=== PATIENT | male | born 1965 | race Caucasian/White ===

== ENCOUNTER 2018-04-12 14:38 | Emergency (ER) | payer OTHER, SELFPAY ==
[2018-04-12 14:40] VITALS: BP 137/88; PULSE 63; RESP 12; TEMP 37.1; O2SAT 100; BMI 24.4
--- NOTE | 2018-04-12 14:46 | DI.RAD.S_ITS ---
PROCEDURE: XR CHEST 1V INDICATIONS: chest pain TECHNIQUE: One view of the chest was acquired. COMPARISON: None. FINDINGS: Surgical changes and devices: None. Lungs and pleura: Lungs are clear. No pleural effusions or pneumothorax. Mediastinum: Mediastinal contours appear normal. Heart size is normal. Bones and chest wall: No suspicious bony lesions. Overlying soft tissues appear unremarkable. IMPRESSION: No acute cardiopulmonary disease. Dictated by: Darek Mennedez M.D. on 04/12/2018 at 15:18 Approved by: Darek Menendez M.D. on 04/12/2018 at 15:19
[2018-04-12 14:54] LABS: Add Manual Diff / Slide Review NO; Basophils Absolute Auto 0 /uL (0-100); Basophils Percent Auto 0.4 % (0-2); Eosinophils Absolute Auto 200 /uL (0-450); Eosinophils Percent Auto 1.7 % (2-4); Hematocrit 50.7 % (41-53); Hemoglobin 17.3 g/dL (13.5-17.5); Lymphocytes Absolute Auto 1900 /uL (1100-4500); Lymphocytes Percent Auto 21.6 % (25-40); Mean Corpuscular HGB Conc 34.2 % (30-36); Mean Corpuscular Hemoglobin 30.3 PG (26-34); Mean Corpuscular Volume 88.8 fL (80-100); Monocytes Absolute Auto 900 /uL (0-900); Monocytes Percent Auto 10.4 % (3-14); Neutrophils Absolute Auto 5900 /uL (1500-7000); Neutrophils Percent Auto 65.9 % (50-75); Platelet Count 200 X10^3/uL (150-400); Red Blood Cell Count 5.71 X10^6/uL (4.5-5.9); Red Cell Distribution Width 12.8 % (11.6-14.8); White Blood Cell Count 8.9 X10^3/uL (4.5-11.0)
--- NOTE | 2018-04-12 14:55 | ED_ITS ---
HPI - Chest Pain General Chief Complaint: Chest Pain Stated Complaint: CHEST PAIN,BAD STOMACH Time Seen by Provider: 04/12/18 14:47 Source: patient Mode of arrival: ambulatory Limitations: no limitations History of Present Illness HPI narrative: patient is a 52-year-old male presenting with left-sided chest pain. He was being treated for gastric ulcer with sucralfate and Protonix. He is on these medications for 3 weeks however he quit sulfate 1 week ago a few days ago he started having some chest discomfort and increased gas. With these are similar to his gastric ulcer symptoms however is a little different. No radiation no shortness of has no nausea vomiting.Patient is yesterday his symptoms are actually much worse which is when he started taking the sucralfate again he took 1 dose yesterday and 1 dose today. Called the nursing hotline who recommended he come to the emergency department for further evaluation. He overall feels better today than he did yesterday. MD complaint: chest pain Related Data Home Medications Medication Instructions Recorded Confirmed sucralfate 1 gram tablet 1 gram PO QID tab 04/05/18 04/12/18 atenolol 50 mg PO DAILY 04/12/18 04/12/18 diltiazem HCl 120 mg PO DAILY 04/12/18 04/12/18 diphenhydramine HCl 12.5 mg PO BEDTIME PRN 04/12/18 hydroxyzine pamoate 25 mg PO DAILY 04/12/18 04/12/18 meloxicam 15 mg PO DAILY 04/12/18 04/12/18 omeprazole 40 mg PO DAILY 04/12/18 04/12/18 Allergies Allergy/AdvReac Type Severity Reaction Status Date / Time latex [LATEX] Allergy Unknown Verified 04/12/18 14:44 Review of Systems Review of Systems ROS Unobtainable: All systems reviewed & are unremarkable except as noted in HPI and below Constitutional Denies chills, Denies fever(s), Denies lethargy and Denies weakness Eyes Denies change in vision, Denies eye discharge, Denies irritation and Denies loss of vision ENT Ears, Nose, Mouth, and Throat: Denies change in voice, Denies neck pain and Denies sore throat Cardiovascular Reports chest pain, Denies dyspnea and Denies dyspnea on exertion Respiratory Denies cough, Denies dyspnea, Denies dyspnea on exertion and Denies wheezing Gastrointestinal Gastrointestinal: Reports as per HPI Genitourinary Denies hematuria, Denies flank pain, Denies urinary incontinence and Denies urinary urgency Musculoskeletal Denies neck pain Integumentary/Breasts Denies pruritus, Denies erythema, Denies rash and Denies wounds Neurologic Denies loss of vision and Denies weakness Allergic/Immunologic Denies wheezing [facility] Medical History Bleeding gastric ulcer (Acute) Gastroesophageal reflux disease (Acute) History of nephrolithiasis (Acute) Osteoarthritis (Acute) HTN (hypertension) (Chronic) Raynaud's disease (Chronic) Arthritis (Resolved) Surgical History History of appendectomy (Acute) History of cardiac radiofrequency ablation (Acute) History of cholecystectomy (Acute) History of colonoscopy (Acute) History of tonsillectomy (Acute) Family History Mother Hypertension Brother Hypertension Grandfather Diabetes mellitus Grandmother Stroke Social History marital status: household members: spouse occupational status: employed Smoking Status: Never smoker alcohol intake: current substance use type: does not use Family History Mother Hypertension Brother Hypertension Grandfather Diabetes mellitus Grandmother Stroke Social History marital status: household members: spouse occupational status: employed Smoking Status: Never smoker alcohol intake: current substance use type: does not use Exam Initial Vital Signs Initial Vital Signs: Vital Signs Temperature 98.8 F 04/12/18 14:40 Pulse Rate 63 04/12/18 14:40 Respiratory Rate 12 04/12/18 14:40 Blood Pressure 137/88 04/12/18 14:40 Pulse Oximetry 100 04/12/18 14:40 GENERAL: well-appearing male no acute distr HEENT: Head atraumatic,EOMI, pupils reactive, face symmetric neck is supple CARDIOVASCULAR: Regular rate and rhythm without murmurs, rubs or gallops. RESPIRATORY: Breath sounds equal bilaterally, no wheezes rales or rhonchi. ABDOMEN: Soft, nontender. Normoactive bowel sounds all 4 quadrants. No guarding or rebound. No right upper quadrant pain EXTREMITIES: Normal range of motion, no clubbing or edema. Neurovascularly intact NEUROLOGICAL: Alert and oriented x4.Normal gait and speech. Cranial nerves II through XII grossly intact. SKIN: Warm, dry, no laceration, no petechiae, no rashes or lesions. Scores HEART Score Heart Score history: Slightly Suspicious Heart Score EKG: Normal Heart Score Age: 45-64 years old Heart Score risk factors: 1-2 risk factors Heart Score troponin: < or = to normal limit Heart Score Total: 2 Course Orders Ordered: ED Orders 04/12/18 14:45 Complete Blood Count AUTO DIFF Stat Comprehensive Metabolic Panel Stat Lipase Stat Partial Thromboplastin Time Stat Prothrombin Time INR Stat Troponin & CK Cardiac Panel Stat 04/12/18 14:46 XR chest 1V Stat EKG-12 Lead Stat Discontinued Medications Pantoprazole Sodium (Protonix) 40 mg IV NOW ONE Stop: 04/12/18 15:07 Last Admin: 04/12/18 15:55 Dose: 40 mg Vital Signs - 8 hr 04/12/18 14:40 04/12/18 15:00 04/12/18 16:00 Temperature 98.8 F Pulse Rate 63 58 L 59 L Respiratory Rate 12 15 16 Blood Pressure 137/88 Blood Pressure [Right Arm] 142/91 H 111/79 Pulse Oximetry 100 100 100 MDM - Chest Pain Lab Data Attestation: I reviewed the patient's lab results. Result diagrams: 04/12/18 14:45 04/12/18 14:45 Lab Results 04/12/18 04/12/18 04/12/18 Range/Units 14:45 14:45 14:45 WBC 8.9 (4.5-11.0) X10^3/uL RBC 5.71 (4.5-5.9) X10^6/uL Hgb 17.3 (13.5-17.5) g/dL Hct 50.7 (41-53) % MCV 88.8 (80-100) fL MCH 30.3 (26-34) PG MCHC 34.2 (30-36) % RDW 12.8 (11.6-14.8) % Plt Count 200 (150-400) X10^3/uL Neut % (Auto) 65.9 (50-75) % Lymph % (Auto) 21.6 L (25-40) % Collin % (Auto) 10.4 (3-14) % Eos % (Auto) 1.7 L (2-4) % Baso % (Auto) 0.4 (0-2) % Neut # (Auto) 5900 (0793-0386) /uL Lymph # (Auto) 1900 (3106-2234) /uL Collin # (Auto) 900 (0-900) /uL Eos # (Auto) 200 (0-450) /uL Baso # (Auto) 0 (0-100) /uL PT 10.4 (10.1-12.7) SECONDS INR 0.9 (0.9-1.3) APTT 30 (26.4-36.2) SECONDS Sodium 140 (137-145) mmol/L Potassium 4.3 (3.4-5.1) mmol/L Chloride 104 (98-107) mmol/L Carbon Dioxide 24 (22-32) mmol/L BUN 16 (9-20) mg/dL Creatinine 0.90 (0.66-1.25) mg/dL Estimated GFR > 60.0 (>60) mL/min BUN/Creatinine Ratio 17.8 (6-22) Glucose 104 H (70-100) mg/dL Calcium 10.1 (8.4-10.2) mg/dL Total Bilirubin 2.4 H (0.2-1.3) mg/dL AST 32 (17-59) IU/L ALT 49 (21-72) IU/L Alkaline Phosphatase 64 (38-126) U/L Total Creatine Kinase 51 L (55-170) U/L CK-MB (CK-2) TNP CK-MB (CK-2) Rel Index TNP Troponin I < 0.012 (0.01-0.034) ng/mL Total Protein 8.2 (6.3-8.2) g/dL Albumin 4.9 (3.5-5.0) g/dL Globulin 3.3 (1.7-4.1) g/dL Albumin/Globulin Ratio 1.5 (1.0-2.8) Lipase 227 (23-300) U/L ECG Data Attestation: I personally reviewed and interpreted this ECG as follows: Prior ECG tracings: not available for review Interpretation: normal sinus rhythm rate [address] changes no T-wave inversions right bundle-branch block MDM Narrative Medical decision making narrative: patient's signs and symptoms are similar to previously when he had his presumed gastric ulcer. They got better yesterday and today after having sucralfate. I also did discuss with him however he should have cardiac stress test. However at this time I think this can be done as an outpatient. I also strongly recommended re-consult thing surgery and need for endoscopy. Both and patient understood. Discharge Plan Departure Patient Disposition: Home Clinical Impression: Atypical chest pain Discharge Date/Time: 04/12/18 16:12 Interventions: ED Discharge Assessment Last Done: 04/12/18 16:12 Instructions: DI for Atypical Chest Pain Activity Restrictions/Additional Instructions: *You have been diagnosed with Atypical chest pain *What to do: at this time and he recommend outpatient cardiac stress testing. your primary care provider can help set up these testings and referrals.Also if your continuing to have worsening symptoms of a gastric ulcer recommend following up with surgery for probable and possible endoscopy. *Continue to take medications as directed Resume sucralfate as previously prescribed *Follow up with your primary care provider in 2-3 days, Call [facility] for follow-up appointment *Return to ER if you should have increasing chest pain shortness of breath heart palpitations or any new, worsening or concerning symptoms Prescriptions: No Action sucralfate 1 gram tablet 1 gram PO QID RF: 0 meloxicam 15 mg tablet 15 mg PO DAILY RF: 0 omeprazole 40 mg capsule,delayed release(DR/EC) 40 mg PO DAILY RF: 0 diltiazem HCl 120 mg capsule,extended release 24 hr 120 mg PO DAILY RF: 0 atenolol 50 mg tablet 50 mg PO DAILY RF: 0 hydroxyzine pamoate 25 mg capsule 25 mg PO DAILY RF: 0 diphenhydramine HCl 25 mg Tablet 12.5 mg PO BEDTIME PRN (Reason: Sleep) RF: 0 Referrals: Melody Benton PA-C [Primary Care Provider] -
[2018-04-12 15:00] VITALS: BP 142/91; PULSE 58; RESP 15; O2SAT 100
[2018-04-12 15:02] LABS: INR 0.9 (0.9-1.3); Prothrombin Time 10.4 SECONDS (10.1-12.7)
[2018-04-12 15:04] LABS: PTT Partial Thromboplastin Tim 30 SECONDS (26.4-36.2)
[2018-04-12 15:06] LABS: Alanine Aminotransferase 49 IU/L (21-72); Albumin 4.9 g/dL (3.5-5.0); Albumin Globulin Ratio 1.5 (1.0-2.8); Alkaline Phosphatase 64 U/L (38-126); Aspartate Aminotransferase 32 IU/L (17-59); BUN Creatinine Ratio 17.8 (6-22); Bilirubin Total 2.4 mg/dL (0.2-1.3); Blood Urea Nitrogen 16 mg/dL (9-20); Calcium 10.1 mg/dL (8.4-10.2); Carbon Dioxide 24 mmol/L (22-32); Chloride 104 mmol/L (98-107); Creatine Kinase 51 U/L (55-170); Estimated Glomerular Filt Rate > 60.0 mL/min (>60); Globulin 3.3 g/dL (1.7-4.1); Glucose 104 mg/dL (70-100); HEMOLYSIS < 15 (0-50); Lipase 227 U/L (23-300); Potassium 4.3 mmol/L (3.4-5.1); Sodium 140 mmol/L (137-145); Total Protein 8.2 g/dL (6.3-8.2)
[2018-04-12 15:17] LABS: Troponin I < 0.012 ng/mL (0.01-0.034)
[2018-04-12] MEDS: PANTOPRAZOLE 40 MG VIAL IV (15:55)
[2018-04-12 16:00] VITALS: BP 111/79; PULSE 59; RESP 16; O2SAT 100
== END 2018-04-12 16:12 | disposition home or self-care (01) ==
PROVIDERS: Emergency Provider Emergency Medicine; Family Provider Family Medicine; PCP Physician Assistant
DX: R07.89 Other chest pain (principal)
CPT/HCPCS: 36591; 71045; 80053; 82550; 83690; 84484; 85025; 85610; 85730; 93005; 93010; 96374; 99283; 99285; C9113

== ENCOUNTER 2018-04-26 11:41 | Day surgery (SDC) | payer OTHER, SELFPAY ==
--- NOTE | 2018-04-26 | PATH_ITS ---
[facility] Accession Number: [id number] . 01 Material submitted: . ANTRAL BIOPSY . 02 Diagnosis: Stomach, Antrum, Biopsy: Antral mucosa with no diagnostic abnormality. Negative for Helicobacter by immunohistochemistry. Negative for intestinal metaplasia. Negative for dysplasia and malignancy. MRV/04/30/2018 . 02 Electronically signed: . Stephanie Patterson MD, Pathologist NPI- [id number] . 01 Gross description: . Received one formalin-filled container labeled with the patient's name and labeled antral. The specimen consists of three 0.1 to 0.4 cm portions of tissue. Entirely submitted in one cassette. [place] [id number] /[facility] . 02 Microscopic: . An immunohistochemical stain was performed to evaluate for Helicobacter organisms and is negative. The control stain showed appropriate reactivity. . * This test was developed and its performance characteristics determined by [employer]. It has not been cleared or approved by the U.S. Food and Drug Administration. The FDA has determined that such clearance or approval is not necessary. This test is used for clinical purposes. It should not be regarded as investigational or for research. . 02 Pathologist provided ICD-10: R10.9 . 02 CPT . 241995, H03361 Performed at: 01 [facility] [address], [place], [place] [id number] MD Deion Thomas MD Phone: [phone] Performed at: 02 [facility] [address] [place], [place] [id number] MD Stephanie Patterson MD Phone: [phone]
[2018-04-26 12:06] VITALS: BP 116/77; PULSE 61; RESP 18; TEMP 36.4; O2SAT 100; BMI 25.7
[2018-04-26] MEDS: SODIUM CHLORIDE 0.9% 1,000 ML 200 ML IV (12:24)
--- NOTE | 2018-04-26 12:27 | PM.PREOP ---
Pre-operative Note Interval Note History & Physical reviewed/Exam performed by Physician: Yes Changes to H&P: No H&P completed within 30 days and has changed as indicated here:: Patient seen and examined in preoperative area. His history physical examination from April 05, 2018 has not changed. We will proceed with EGD today as planned. Risks, benefits, alternatives were again reviewed including potential risk for perforation. Consent is on the chart. Proceed as above. ASA Class (for procedural sedation): II
[2018-04-26] MEDS: LIDOCAINE 4% SOLN 50 ML 20 ML TOP (12:28)
[2018-04-26] MEDS: TETRACAINE/BENZOCAINE/BUTAMBEN (CETACAINE) BOTTLE 1 SPRAY TOP (12:28)
[2018-04-26] MEDS: MIDAZOLAM 5 MG/5 ML VIAL IV (12:35)
[2018-04-26] MEDS: fentaNYL 250 MCG/5 ML INJ IV (12:36)
--- NOTE | 2018-04-26 12:44 | P.OP.ENDO_ITS ---
Operative Date/Time/Diagnoses Date of procedure: 04/26/18 Time of procedure: 12:42 Pre-op diagnosis: Gastroesophageal reflux disease and epigastric pain Post-op diagnosis: other (Mild antral gastritis but otherwise normal upper gastrointestinal tract) Procedure & Clinicians Study performed: 1. Sedation per surgeon 2. Esophagogastroduodenoscopy with cold forceps biopsies Same procedure as scheduled: Yes Indications: 52-year-old male who presented with intermittent epigastric abdominal pain. He also had significant reflux symptoms. Despite proton pump inhibitor therapy and sucralfate he continued to have symptoms. He was therefore recommended undergo EGD Surgeon: Brown Zamudio Procedure Notes SCOAP/Timeout: Yes Procedure in detail: After obtaining informed consent, the patient was brought to the GI suite and placed in the left lateral decubitus position on the examination table. After placement of appropriate monitors, the patient was given incremental doses of Versed and Fentanyl until an appropriate level of sedation was achieved. A time out was held per SCOAP protocol. A bite block was gently placed between the patient's teeth. The endoscope was lubricated and then passed into the patient's posterior oropharynx. The esophagus was cannulated under direct vision and the scope was passed to the second portion of the duodenum without difficulty. The scope was then withdrawn with careful examination of all areas of the upper GI tract and mucosa. In the stomach, the instrument was retroflexed and the GE junction examined. The scope was straightened and the procedure continued with examin ation of the remainder of the upper GI tract. Findings are noted above. Air was aspirated from the stomach and the endoscope gently removed from the esophagus. The patient was allowed to awaken from sedation without difficulty and taken to the post-anesthesia care unit in good condition. Scope withdrawal time: Not applicable Sedation minutes: 17 Findings: gastritis (Minimal at the antrum only) and other findings (Otherwise normal upper gastrointestinal tract) Specimen(s): other (Antral biopsies) Complications: none Recommendations: Reflux diet, Continue medication(s) and Will call with biopsy results Plan for aftercare: 1. Discharge home Follow up: as needed Disposition: PACU
[2018-04-26 12:46] VITALS: BP 112/81; PULSE 62; RESP 11; TEMP 36; O2SAT 94
[2018-04-26 12:51] VITALS: BP 111/80; PULSE 63; RESP 13; O2SAT 96
[2018-04-26 12:56] VITALS: BP 115/81; PULSE 66; RESP 13; TEMP 36.3; O2SAT 97
[2018-04-26 13:02] VITALS: BP 112/74; PULSE 62; RESP 15; TEMP 36.5; O2SAT 96
== END 2018-04-26 13:11 | disposition home or self-care (01) ==
PROVIDERS: Family Provider Family Medicine; PCP Physician Assistant; Visit Provider Surgery
PROC: 0DJ08ZZ Inspection of Upper Intestinal Tract, Via Natural or Artificial Opening Endoscopic (ICD-10-PCS; CPT 43235; principal; 2018-04-26 13:00)
DX: R10.13 Epigastric pain (principal); K21.9 Gastro-esophageal reflux disease without esophagitis; K29.70 Gastritis, unspecified, without bleeding; I10 Essential (primary) hypertension; I73.00 Raynaud's syndrome without gangrene
CPT/HCPCS: 43239; J2250; J3010

== ENCOUNTER 2018-11-16 12:59 | Emergency (ER) | payer OTHER, SELFPAY ==
[2018-11-16 13:06] VITALS: BP 122/85; PULSE 62; RESP 16; TEMP 36.2; O2SAT 100; BMI 24.4
[2018-11-16 13:31] LABS: Bacteria Urine None Seen
[2018-11-16 13:37] LABS: Amorphous Sediment Urine 1+; Culture Indicated Urine Cult Not Indicated; Mucus Urine 1+ (Negative); RBC Urine 5-10/HPF (0-5/HPF); Squamous Epithelial Cell Urine 0-1 /HPF (0-5/HPF); WBC Urine 0-1/HPF (0-5/HPF)
[2018-11-16 13:43] LABS: Add Manual Diff / Slide Review NO; Basophils Absolute Auto 0 /uL (0-100); Basophils Percent Auto 0.4 % (0-2); Eosinophils Absolute Auto 100 /uL (0-450); Eosinophils Percent Auto 1.8 % (2-4); Hematocrit 49.5 % (41-53); Hemoglobin 16.9 g/dL (13.5-17.5); Lymphocytes Absolute Auto 1500 /uL (1100-4500); Lymphocytes Percent Auto 19.1 % (25-40); Mean Corpuscular HGB Conc 34.3 % (30-36); Mean Corpuscular Hemoglobin 30.8 PG (26-34); Monocytes Absolute Auto 900 /uL (0-900); Monocytes Percent Auto 11.1 % (3-14); Neutrophils Absolute Auto 5400 /uL (1500-7000); Neutrophils Percent Auto 67.6 % (50-75); Platelet Count 198 X10^3/uL (150-400); Red Blood Cell Count 5.49 X10^6/uL (4.5-5.9); Red Cell Distribution Width 12.4 % (11.6-14.8)
[2018-11-16] MEDS: KETOROLAC 60 MG/2 ML VIAL 15 MG IV (13:51)
[2018-11-16] MEDS: ONDANSETRON 4 MG/2 ML INJ IV (13:52)
[2018-11-16 13:54] LABS: Prothrombin Time 10.9 SECONDS (10.1-12.7)
[2018-11-16 13:56] LABS: PTT Partial Thromboplastin Tim 34 SECONDS (26.4-36.2)
[2018-11-16 13:57] LABS: Alanine Aminotransferase 45 IU/L (21-72); Albumin 4.6 g/dL (3.5-5.0); Albumin Globulin Ratio 1.4 (1.0-2.8); Alkaline Phosphatase 61 U/L (38-126); Aspartate Aminotransferase 44 IU/L (17-59); BUN Creatinine Ratio 15.6 (6-22); Bilirubin Total 1.2 mg/dL (0.2-1.3); Blood Urea Nitrogen 14 mg/dL (9-20); Calcium 9.5 mg/dL (8.4-10.2); Carbon Dioxide 27 mmol/L (22-32); Chloride 102 mmol/L (98-107); Estimated Glomerular Filt Rate > 60.0 mL/min (>60); Globulin 3.2 g/dL (1.7-4.1); Glucose 92 mg/dL (70-100); HEMOLYSIS 27 (0-50); Lipase 176 U/L (23-300); Potassium 4.4 mmol/L (3.4-5.1); Sodium 141 mmol/L (137-145); Total Protein 7.8 g/dL (6.3-8.2)
--- NOTE | 2018-11-16 13:57 | DI.CT.S_ITS ---
PROCEDURE: CT ABDOMEN PELVIS W CON INDICATIONS: r side abdomen pain for 2 wks, s/p appy and kidney stone TECHNIQUE: After the administration of intravenous contrast, 5 mm thick sections acquired from the diaphragm to the symphysis. 5 mm coronal and sagittal reformats were acquired. For radiation dose reduction, the following was used: automated exposure control, adjustment of mA and/or kV according to patient size. COMPARISON: None. FINDINGS: Image quality: Excellent. ABDOMEN: Lung bases: Lung bases are clear. Heart size is normal. Solid organs: Liver is normal in size and enhancement. Right lobe liver cyst. Gallbladder is surgically absent.. Biliary system is non dilated. Pancreas enhances normally. Spleen is normal in size and enhancement. No adrenal nodules. There is a 4 mm stone at the right ureterovesical junction resulting in mild dilatation of the right ureter. There is no right hydronephrosis. There is no delayed right nephrogram. No right renal stone. Left kidney and ureter are unremarkable. Peritoneum and bowel: Bowel loops demonstrate normal wall thickness and caliber. No free fluid or air. Sigmoid diverticulosis without evidence of diverticulitis. Nodes and vessels: No retroperitoneal or mesenteric adenopathy by size criteria. Aorta and inferior vena cava are normal in size. Miscellaneous: No ventral hernias. PELVIS: Genitourinary: Mild diffuse bladder wall thickening. Miscellaneous: No inguinal hernias or adenopathy. Bones: No suspicious bony lesions. No vertebral body compression fractures. IMPRESSION: 1. A 4 mm right ureterovesical junction stone results in mild right hydroureter without right hydronephrosis. 2. Sigmoid diverticulosis. 3. Mild diffuse bladder wall thickening. Dictated by: Nick Mcnulty M.D. on 11/16/2018 at 14:22 Approved by: Nick Mcnulty M.D. on 11/16/2018 at 14:26
[2018-11-16] MEDS: SODIUM CHLORIDE 0.9% 500 ML 1000 ML IV (14:58)
[2018-11-16 15:01] LABS: Procalcitonin < 0.05 ng/mL (<0.5)
[2018-11-16 15:34] VITALS: BP 111/78; PULSE 63; RESP 14; O2SAT 100
--- NOTE | 2018-11-16 22:46 | ED.ABDPAIN ---
HPI - Abdominal Pain <ELODIA Medley - Last Filed: 11/16/18 23:06> General Chief Complaint: Abdominal Pain Stated Complaint: states severe abdominal pain, couple of weeks Time Seen by Provider: 11/16/18 13:24 Source: patient Mode of arrival: Ambulatory Limitations: no limitations History of Present Illness HPI narrative: This is a 53-year-old male, nonsmoker, who presents to ED with his spouse with chief complain of right side abdominal pain crossing to left side for last 2 weeks and states which has been progressively worse. Reports the pain is sharp, cramping, pressure. There is no aggravating and relieving factors and does not see the pattern of this pain. Reports occasional nausea, decreased appetite, occasional chills, decreased energy level, some right scrotum sensitivity. The patient denies fever, vomiting, flank pain. Patient reports increase in urination but denies dysuria. Patient has a history of appendectomy and cholecystectomy. Patient denies bulging or swelling to his scrotum, umbilicus, groin. He was seen by his provider when the pain initially occurred and prescribed with Cipro due urine WBC and occult blood for a day and he was called at home to stop taking this medication since the culture was negative. Patient is known to have kidney stones in the past. He thought this was another kidney stone episode but now does not feel similar to the previous kidney stone pain. Related Data Home Medications Medication Instructions Recorded Confirmed atenolol 50 mg PO QPM 04/12/18 11/16/18 diphenhydramine HCl 12.5 mg PO BEDTIME PRN 04/12/18 11/16/18 meloxicam 15 mg PO QPM 04/12/18 11/16/18 diltiazem HCl [Taztia XT] 120 mg PO QPM 11/16/18 11/16/18 Previous Rx's Medication Instructions Recorded hydrocodone-acetaminophen [[place]] 1 tab PO Q6H PRN #10 tab 11/16/18 ondansetron 4 mg PO BID-TID PRN #10 tab 11/16/18 tamsulosin 0.4 mg PO BEDTIME 5 Days #5 cap 11/16/18 Allergies Allergy/AdvReac Type Severity Reaction Status Date / Time latex [LATEX] Allergy Intermediate Rash Verified 04/26/18 12:14 Review of Systems <ELODIA Medley - Last Filed: 11/16/18 23:06> Review of Systems Narrative: General: See HPI HEENT: Denies sinus pain, ear pain, sore throat, difficulty swallowing, dizziness. Respiratory: Denies dyspnea, cough, wheezing, hemoptysis, sputum. Cardiovascular: Denies chest pain, palpitations, orthopnea, edema. Gastrointestinal: See HPI. : See HPI Musculoskeletal: Denies weakness, joint pain or bony pain. Skin: Denies rash, skin lesions, or other. Neurologic: Denies weakness, headache, numbness, change in speech, confusion, seizures, incoordination. Psychiatric: No concerning psychosocial issues. 12-point review of systems is negative except for those stated above. PFSH <ELODIA Medley - Last Filed: 11/16/18 23:06> Medical History Arthritis (Resolved) Bleeding gastric ulcer (Acute) Gastroesophageal reflux disease (Acute) History of nephrolithiasis (Acute) HTN (hypertension) (Chronic) Osteoarthritis (Acute) Raynaud's disease (Chronic) Surgical History History of appendectomy (Acute) History of cardiac radiofrequency ablation (Acute) History of cholecystectomy (Acute) History of colonoscopy (Acute) History of tonsillectomy (Acute) Family History Mother Hypertension Brother Hypertension Grandfather Diabetes mellitus Grandmother Stroke Social History marital status: household members: spouse occupational status: employed Smoking Status: Never smoker alcohol intake: current substance use type: does not use Family History Mother Hypertension Brother Hypertension Grandfather Diabetes mellitus Grandmother Stroke Social History marital status: household members: spouse occupational status: employed Smoking Status: Never smoker alcohol intake: current substance use type: does not use Exam <ELODIA Medley - Last Filed: 11/16/18 23:06> Narrative Exam Narrative: GEN: Alert, oriented x 3, well appearing and nourished, and in no acute distress. Head: Normal cephalic, atraumatic. No scalp or temporal tenderness, palpable mass or rash. EYES: Pupils are equal, round, and reactive to light and accommodation. Extraocular muscles are intact bilaterally. There is no subconjunctival hemorrhage, exudate and sclera non-icteric. ENT: Hearing grossly intact. Nose without bleeding, purulent discharge or deviation. Mucous membrane moist, no mucosal lesion. Throat without erythema, tonsillar hypertrophy or exudate. Uvula in midline, airway patent. Neck: Trachea in midline. No JVD, non-tender without lymphadenopathy. No masses or thyroid megaly. Supple, non-tender and no meningeal signs. CARDIAC: Normal regular rate and rhythm without murmurs, gallops, or rubs. No chest wall tenderness. No peripheral edema, cyanosis or pallor. Capillary refill is less than 2 seconds. RESPIRATORY: Lungs are cleat to auscultate bilaterally. No cough, wheezes, rales, or rhonchi. No stridor, respiratory distress, increase work of breathing, or accessary muscle used. ABD: Abdomen tender to palpate in right quadrant. Abdomen soft and non-distended. No guarding or rebound tenderness to palpate. Bowel sounds are normal in all 4 quadrants. There is no palpable masses or organomegaly. : No erythema, swelling to scrotum. Mildly tender to palpate. EXT: Full painless ROM of all extremities with no loss of sensation, strength, effusion or edema. SKIN: Warm, dry, normal color for patient. No erythema, lesions or rash over visible areas. BACK: Nontender without deformity or crepitance. No flank tenderness. NEUROLOGICAL: Alert and oriented to place, time and person. Sensation and motor function intact bilaterally. No facial droops, dysphasia. PSYCHIATRIC: Good judgement and reason, without hallucinations, abnormal affect or abnormal behaviors during the examination. Initial Vital Signs Initial Vital Signs: Vital Signs Temperature 97.2 F L 11/16/18 13:06 Pulse Rate 62 11/16/18 13:06 Respiratory Rate 16 11/16/18 13:06 Blood Pressure 122/85 11/16/18 13:06 Pulse Oximetry 100 11/16/18 13:06 <Sasha Bonilla DO - Last Filed: 11/17/18 08:33> Initial Vital Signs Initial Vital Signs: Vital Signs Temperature 97.2 F L 11/16/18 13:06 Pulse Rate 62 11/16/18 13:06 Respiratory Rate 16 11/16/18 13:06 Blood Pressure 122/85 11/16/18 13:06 Pulse Oximetry 100 11/16/18 13:06 Course <Monster WatsonELODIA - Last Filed: 11/16/18 23:06> Orders Ordered: Discontinued Medications Sodium Chloride (Normal Saline 0.9%) 500 mls @ 1,000 mls/hr IV BOLUS PRN PRN Reason: Fluid replacement Last Infusion: 11/16/18 15:48 Dose: 0 mls/hr Documented by: Infusion: 11/16/18 15:06 Dose: 1,000 mls/hr Documented by: Admin: 11/16/18 14:58 Dose: 1,000 mls/hr Documented by: ESTHER Ketorolac Tromethamine (Toradol) 15 mg IV NOW ONE Stop: 11/16/18 13:39 Last Admin: 11/16/18 13:51 Dose: 15 mg Documented by: ESTHER Ondansetron HCl (Zofran) 4 mg IV NOW ONE Stop: 11/16/18 13:39 Last Admin: 11/16/18 13:52 Dose: 4 mg Documented by: ESTHER Vital Signs Vital signs: Vital Signs - 8 hr 11/16/18 15:34 Pulse Rate 63 Respiratory Rate 14 Blood Pressure [Right Arm] 111/78 Pulse Oximetry 100 <Sasha Bonilla DO - Last Filed: 11/17/18 08:33> Orders Ordered: Discontinued Medications Sodium Chloride (Normal Saline 0.9%) 500 mls @ 1,000 mls/hr IV BOLUS PRN PRN Reason: Fluid replacement Last Infusion: 11/16/18 15:48 Dose: 0 mls/hr Documented by: Infusion: 11/16/18 15:06 Dose: 1,000 mls/hr Documented by: Admin: 11/16/18 14:58 Dose: 1,000 mls/hr Documented by: ESTHER Ketorolac Tromethamine (Toradol) 15 mg IV NOW ONE Stop: 11/16/18 13:39 Last Admin: 11/16/18 13:51 Dose: 15 mg Documented by: ESTHER Ondansetron HCl (Zofran) 4 mg IV NOW ONE Stop: 11/16/18 13:39 Last Admin: 11/16/18 13:52 Dose: 4 mg Documented by: ESTHER Vital Signs Vital signs: Vital Signs - 8 hr 11/16/18 15:34 Pulse Rate 63 Respiratory Rate 14 Blood Pressure [Right Arm] 111/78 Pulse Oximetry 100 MDM - Abdominal Pain <Monster ELODIA Watson - Last Filed: 11/16/18 23:06> Differential Diagnosis Differential diagnosis: Likely abdominal pain, calculus of kidney, diverticulitis and small bowel obstruction Medical Records Attestation: I reviewed the patient's medical records. Lab Data Attestation: I reviewed the patient's lab results. Result diagrams: 11/16/18 13:35 11/16/18 13:35 Labs: Lab Results 11/16/18 11/16/18 11/16/18 Range/Units 13:11 13:35 13:35 WBC 8.0 (4.5-11.0) X10^3/uL RBC 5.49 (4.5-5.9) X10^6/uL Hgb 16.9 (13.5-17.5) g/dL Hct 49.5 (41-53) % MCV 90.0 (80-100) fL MCH 30.8 (26-34) PG MCHC 34.3 (30-36) % RDW 12.4 (11.6-14.8) % Plt Count 198 (150-400) X10^3/uL Neut % (Auto) 67.6 (50-75) % Lymph % (Auto) 19.1 L (25-40) % [place] % (Auto) 11.1 (3-14) % Eos % (Auto) 1.8 L (2-4) % Baso % (Auto) 0.4 (0-2) % Neut # (Auto) 5400 (0739-3144) /uL Lymph # (Auto) 1500 (1622-8692) /uL [place] # (Auto) 900 (0-900) /uL Eos # (Auto) 100 (0-450) /uL Baso # (Auto) 0 (0-100) /uL PT 10.9 (10.1-12.7) SECONDS INR 1.0 (0.9-1.3) APTT 34 D (26.4-36.2) SECONDS Sodium (137-145) mmol/L Potassium (3.4-5.1) mmol/L Chloride (98-107) mmol/L Carbon Dioxide (22-32) mmol/L BUN (9-20) mg/dL Creatinine (0.66-1.25) mg/dL Estimated GFR (>60) mL/min BUN/Creatinine Ratio (6-22) Glucose (70-100) mg/dL Calcium (8.4-10.2) mg/dL Total Bilirubin (0.2-1.3) mg/dL AST (17-59) IU/L ALT (21-72) IU/L Alkaline Phosphatase (38-126) U/L Total Protein (6.3-8.2) g/dL Albumin (3.5-5.0) g/dL Globulin (1.7-4.1) g/dL Albumin/Globulin Ratio (1.0-2.8) Lipase (23-300) U/L Procalcitonin (<0.5) ng/mL Urine RBC 5-10/hpf H (0-5/HPF) Urine WBC 0-1/hpf (0-5/HPF) Ur Squamous Epith Cells 0-1 /hpf (0-5/HPF) Amorphous Sediment 1+ Urine Bacteria None seen (None) Urine Mucus 1+ H (Negative) Ur Culture Indicated? Cult not indicated 11/16/18 11/16/18 Range/Units 13:35 13:35 WBC (4.5-11.0) X10^3/uL RBC (4.5-5.9) X10^6/uL Hgb (13.5-17.5) g/dL Hct (41-53) % MCV (80-100) fL MCH (26-34) PG MCHC (30-36) % RDW (11.6-14.8) % Plt Count (150-400) X10^3/uL Neut % (Auto) (50-75) % Lymph % (Auto) (25-40) % [place] % (Auto) (3-14) % Eos % (Auto) (2-4) % Baso % (Auto) (0-2) % Neut # (Auto) (8253-7949) /uL Lymph # (Auto) (3098-3527) /uL [place] # (Auto) (0-900) /uL Eos # (Auto) (0-450) /uL Baso # (Auto) (0-100) /uL PT (10.1-12.7) SECONDS INR (0.9-1.3) APTT (26.4-36.2) SECONDS Sodium 141 (137-145) mmol/L Potassium 4.4 (3.4-5.1) mmol/L Chloride 102 (98-107) mmol/L Carbon Dioxide 27 (22-32) mmol/L BUN 14 (9-20) mg/dL Creatinine 0.90 (0.66-1.25) mg/dL Estimated GFR > 60.0 (>60) mL/min BUN/Creatinine Ratio 15.6 (6-22) Glucose 92 (70-100) mg/dL Calcium 9.5 (8.4-10.2) mg/dL Total Bilirubin 1.2 (0.2-1.3) mg/dL AST 44 (17-59) IU/L ALT 45 (21-72) IU/L Alkaline Phosphatase 61 (38-126) U/L Total Protein 7.8 (6.3-8.2) g/dL Albumin 4.6 (3.5-5.0) g/dL Globulin 3.2 (1.7-4.1) g/dL Albumin/Globulin Ratio 1.4 (1.0-2.8) Lipase 176 (23-300) U/L Procalcitonin < 0.05 (<0.5) ng/mL Urine RBC (0-5/HPF) Urine WBC (0-5/HPF) Ur Squamous Epith Cells (0-5/HPF) Amorphous Sediment Urine Bacteria (None) Urine Mucus (Negative) Ur Culture Indicated? Point of care testing: Urine Dip Bedside Urine Glucose Negative Bedside Urine Bilirubin - Negative Bedside Urine Ketone - Negative Urine Specific [place] 1.015 Bedside Urine Occult Blood ++ Bedside Urine pH 6.0 Bedside Urine Protein - Negative Bedside Urine Urobilinogen - Negative Bedside Urine Nitrite - Negative Bedside Urine Leukocytes - Negative Esterase Imaging Data CT scan - abdomen: Radiologist's impression: [facility] [address] [place] [address] CT Scan Report Signed Patient: Lg Martin WMR#: [id number] : 1965Acct:[id number] Age/Sex: 53 / MDate of Service: 11/16/18 Loc: ED Accession Number: [id number] Procedure: CT abdomen pelvis w con Ordering Provider: Monster Watson PROCEDURE: CT ABDOMEN PELVIS W CON INDICATIONS: r side abdomen pain for 2 wks, s/p appy and kidney stone TECHNIQUE: After the administration of intravenous contrast, 5 mm thick sections acquired from the diaphragm to the symphysis. 5 mm coronal and sagittal reformats were acquired. For radiation dose reduction, the following was used: automated exposure control, adjustment of mA and/or kV according to patient size. COMPARISON: None. FINDINGS: Image quality: Excellent. ABDOMEN: Lung bases: Lung bases are clear. Heart size is normal. Solid organs: Liver is normal in size and enhancement. Right lobe liver cyst. Gallbladder is surgically absent.. Biliary system is non dilated. Pancreas enhances normally. Spleen is normal in size and enhancement. No adrenal nodules. There is a 4 mm stone at the right ureterovesical junction resulting in mild dilatation of the right ureter. There is no right hydronephrosis. There is no delayed right nephrogram. No right renal stone. Left kidney and ureter are unremarkable. Peritoneum and bowel: Bowel loops demonstrate normal wall thickness and caliber. No free fluid or air. Sigmoid diverticulosis without evidence of diverticulitis. Nodes and vessels: No retroperitoneal or mesenteric adenopathy by size criteria. Aorta and inferior vena cava are normal in size. Miscellaneous: No ventral hernias. PELVIS: Genitourinary: Mild diffuse bladder wall thickening. Miscellaneous: No inguinal hernias or adenopathy. Bones: No suspicious bony lesions. No vertebral body compression fractures. IMPRESSION: 1. A 4 mm right ureterovesical junction stone results in mild right hydroureter without right hydronephrosis. 2. Sigmoid diverticulosis. 3. Mild diffuse bladder wall thickening. Dictated by: Nick Mcnulty M.D. on 11/16/2018 at 14:22 Approved by: Nick Mcnulty M.D. on 11/16/2018 at 14:26 [facility] Narrative Medical decision making narrative: This is a 53-year-old gentleman who presents to ED with 2 week duration of right side abdominal pain which has been progressively worse with occasional nausea, decreased appetite, occasional chills. Patient has a history of cholecystectomy, appendectomy, several kidney stones in the past. Patient was seen by PCP last week and was placed on Cipro for possible UTI but was called a couple of days after to stop taking antibiotic medications due to urine culture came back as negative. CBC and CMP were unremarkable with negative lactate. CT test was obtained and shows 4 mm stone in uretervesical junction without hydronephrosis what with mild right hydroureter and mild diffuse bladder wall thickening. UA showed 2+ occult blood without obvious infection. Occult blood without Also found incidental sigmoid diverticulosis. Patient was medicated wit IV fluid, Zofran and Ketolac which improved his discomfort. The findings were shared with patient and significant other. Patient was discharged to home with [place], Zofran and Tamsulosin. Patient advised to follow up with primary care physician next week and return precautions were discussed. The patient and spouse verbalized understanding and agree with treatment plan. <Sasha Bonilla, DO - Last Filed: 11/17/18 08:33> Lab Data Labs: Lab Results 11/16/18 11/16/18 11/16/18 Range/Units 13:11 13:35 13:35 WBC 8.0 (4.5-11.0) X10^3/uL RBC 5.49 (4.5-5.9) X10^6/uL Hgb 16.9 (13.5-17.5) g/dL Hct 49.5 (41-53) % MCV 90.0 (80-100) fL MCH 30.8 (26-34) PG MCHC 34.3 (30-36) % RDW 12.4 (11.6-14.8) % Plt Count 198 (150-400) X10^3/uL Neut % (Auto) 67.6 (50-75) % Lymph % (Auto) 19.1 L (25-40) % [place] % (Auto) 11.1 (3-14) % Eos % (Auto) 1.8 L (2-4) % Baso % (Auto) 0.4 (0-2) % Neut # (Auto) 5400 (5971-5038) /uL Lymph # (Auto) 1500 (2245-2361) /uL [place] # (Auto) 900 (0-900) /uL Eos # (Auto) 100 (0-450) /uL Baso # (Auto) 0 (0-100) /uL PT 10.9 (10.1-12.7) SECONDS INR 1.0 (0.9-1.3) APTT 34 D (26.4-36.2) SECONDS Sodium (137-145) mmol/L Potassium (3.4-5.1) mmol/L Chloride (98-107) mmol/L Carbon Dioxide (22-32) mmol/L BUN (9-20) mg/dL Creatinine (0.66-1.25) mg/dL Estimated GFR (>60) mL/min BUN/Creatinine Ratio (6-22) Glucose (70-100) mg/dL Calcium (8.4-10.2) mg/dL Total Bilirubin (0.2-1.3) mg/dL AST (17-59) IU/L ALT (21-72) IU/L Alkaline Phosphatase (38-126) U/L Total Protein (6.3-8.2) g/dL Albumin (3.5-5.0) g/dL Globulin (1.7-4.1) g/dL Albumin/Globulin Ratio (1.0-2.8) Lipase (23-300) U/L Procalcitonin (<0.5) ng/mL Urine RBC 5-10/hpf H (0-5/HPF) Urine WBC 0-1/hpf (0-5/HPF) Ur Squamous Epith Cells 0-1 /hpf (0-5/HPF) Amorphous Sediment 1+ Urine Bacteria None seen (None) Urine Mucus 1+ H (Negative) Ur Culture Indicated? Cult not indicated 11/16/18 11/16/18 Range/Units 13:35 13:35 WBC (4.5-11.0) X10^3/uL RBC (4.5-5.9) X10^6/uL Hgb (13.5-17.5) g/dL Hct (41-53) % MCV (80-100) fL MCH (26-34) PG MCHC (30-36) % RDW (11.6-14.8) % Plt Count (150-400) X10^3/uL Neut % (Auto) (50-75) % Lymph % (Auto) (25-40) % [place] % (Auto) (3-14) % Eos % (Auto) (2-4) % Baso % (Auto) (0-2) % Neut # (Auto) (9080-0878) /uL Lymph # (Auto) (4188-4032) /uL [place] # (Auto) (0-900) /uL Eos # (Auto) (0-450) /uL Baso # (Auto) (0-100) /uL PT (10.1-12.7) SECONDS INR (0.9-1.3) APTT (26.4-36.2) SECONDS Sodium 141 (137-145) mmol/L Potassium 4.4 (3.4-5.1) mmol/L Chloride 102 (98-107) mmol/L Carbon Dioxide 27 (22-32) mmol/L BUN 14 (9-20) mg/dL Creatinine 0.90 (0.66-1.25) mg/dL Estimated GFR > 60.0 (>60) mL/min BUN/Creatinine Ratio 15.6 (6-22) Glucose 92 (70-100) mg/dL Calcium 9.5 (8.4-10.2) mg/dL Total Bilirubin 1.2 (0.2-1.3) mg/dL AST 44 (17-59) IU/L ALT 45 (21-72) IU/L Alkaline Phosphatase 61 (38-126) U/L Total Protein 7.8 (6.3-8.2) g/dL Albumin 4.6 (3.5-5.0) g/dL Globulin 3.2 (1.7-4.1) g/dL Albumin/Globulin Ratio 1.4 (1.0-2.8) Lipase 176 (23-300) U/L Procalcitonin < 0.05 (<0.5) ng/mL Urine RBC (0-5/HPF) Urine WBC (0-5/HPF) Ur Squamous Epith Cells (0-5/HPF) Amorphous Sediment Urine Bacteria (None) Urine Mucus (Negative) Ur Culture Indicated? Point of care testing: Urine Dip Bedside Urine Glucose Negative Bedside Urine Bilirubin - Negative Bedside Urine Ketone - Negative Urine Specific [place] 1.015 Bedside Urine Occult Blood ++ Bedside Urine pH 6.0 Bedside Urine Protein - Negative Bedside Urine Urobilinogen - Negative Bedside Urine Nitrite - Negative Bedside Urine Leukocytes - Negative Esterase Discharge Plan Departure Patient Disposition: Home Clinical Impression: Kidney stone on right side Discharge Date/Time: 11/16/18 15:49 Instructions: DI for Kidney Stones Activity Restrictions/Additional Instructions: You have been diagnosed with [right-sided kidney stone in junction of bladder and ureter. No obvious signs of infection at this time, obstruction, or hydronephrosis.]. What to do: *Take your medications as directed. Please continue with meloxicam, for severe pain please take [place] as ordered. You can take Zofran for nausea as needed and tamsulosin at night 1 tab daily to help passing stone. Please increase hydration. *Follow up with your primary care provider in 2-3 days, call for an appointment. Let them know you were seen in the ED and that we asked you to be seen in follow up. You may need a referral to urologist and talk to her primary care physician about this. *Return to ED if you have any new, worsening, or concerning symptoms, such as [fever, unable to void, chest pain, breathing difficulty, unable to tolerate fluids, increasing pain or any acute concerns]. Prescriptions: New hydrocodone-acetaminophen [[place]] 5-325 mg tablet 1 tab PO Q6H PRN (Reason: pain) Qty: 10 RF: 0 ondansetron 4 mg tablet,disintegrating 4 mg PO BID-TID PRN (Reason: nausea and vomiting) Qty: 10 RF: 0 tamsulosin 0.4 mg capsule 0.4 mg PO BEDTIME 5 Days Qty: 5 RF: 0 No Action meloxicam 15 mg tablet 15 mg PO QPM RF: 0 atenolol 50 mg tablet 50 mg PO QPM RF: 0 diphenhydramine HCl 25 mg Tablet 12.5 mg PO BEDTIME PRN (Reason: Sleep) RF: 0 diltiazem HCl [Taztia XT] 120 mg Capsule,Extended Release 24 Hr 120 mg PO QPM RF: 0 Referrals: Melody Benton PA-C [Primary Care Provider] -
== END 2018-11-16 15:49 | disposition home or self-care (01) ==
PROVIDERS: Emergency Medicine; Emergency Provider Nurse Practitioner Family; Family Provider Family Medicine; PCP Physician Assistant
DX: N20.0 Calculus of kidney (principal)
CPT/HCPCS: 36415; 74177; 80053; 81003; 81015; 83690; 84145; 85025; 85610; 85730; 96374; 96375; 99283; 99285; J1885; J2405; Q9967

== ENCOUNTER 2020-02-26 13:47 | Emergency (ER) | payer OTHER, SELFPAY ==
[2020-02-26 13:57] VITALS: BP 130/85; PULSE 63; RESP 14; TEMP 36.6; O2SAT 100; BMI 25.0
--- NOTE | 2020-02-26 14:04 | ED_ITS ---
HPI - Chest Pain General Chief Complaint: Chest Pain Stated Complaint: sick when ever he eats x4 days Time Seen by Provider: 02/26/20 14:02 Source: patient Mode of arrival: Ambulatory Limitations: no limitations History of Present Illness HPI narrative: Patient is a 54-year-old male who presents with nausea vomiting abdominal pain ongoing for the last 5 days. He said it initially started when he 8 1 she fell immediately nauseous and vomited. He says every time he eats now he feels nauseous he occasionally has radiating chest pain when this happens. He has some epigastric pain and also complaining of some very mild right flank pain. He has no radiation of his pain to his groin or abdomen. However he does have a history of kidney stones and says this is how his previous kidney stone who presented. He has been drinking a lot of water and denies any blood or dark urine. MD complaint: chest pain and other Onset (ago): day(s) (5) Duration: intermittent Related Data Home Medications Medication Instructions Recorded Confirmed atenolol 50 mg PO QPM 04/12/18 11/16/18 diphenhydramine HCl 12.5 mg PO BEDTIME PRN 04/12/18 11/16/18 meloxicam 15 mg PO QPM 04/12/18 11/16/18 diltiazem HCl [Taztia XT] 120 mg PO QPM 11/16/18 11/16/18 Previous Rx's Medication Instructions Recorded hydrocodone-acetaminophen [[place]] 1 tab PO Q6H PRN #10 tab 11/16/18 ondansetron 4 mg PO BID-TID PRN #10 tab 11/16/18 omeprazole 20 mg PO DAILY #30 cap 02/26/20 ondansetron 4 mg PO Q8H PRN #10 tab 02/26/20 Allergies Allergy/AdvReac Type Severity Reaction Status Date / Time latex [LATEX] Allergy Intermediate Rash Verified 02/26/20 14:02 Review of Systems Review of Systems ROS Unobtainable: All systems reviewed & are unremarkable except as noted in HPI and below Constitutional Constitutional: Denies chills, Denies fever(s), Denies lethargy and Denies weakness Eyes Eyes: Denies change in vision, Denies eye discharge, Denies irritation and Denie s loss of vision Cardiovascular Cardiovascular: Reports as per HPI, Denies dyspnea and Denies dyspnea on exertion Respiratory Respiratory: Denies cough, Denies dyspnea, Denies dyspnea on exertion and Denies wheezing Gastrointestinal Gastrointestinal: Reports as per HPI Genitourinary Genitourinary: Reports as per HPI Genitourinary: Reports as per HPI Musculoskeletal Musculoskeletal: Reports back pain (Right flank) and Denies myalgias Integumentary/Breasts Skin/Breast: Denies pruritus, Denies erythema, Denies rash and Denies wounds Neurologic Neurologic: Denies loss of vision and Denies weakness Allergic/Immunologic Allergic/Immunologic: Denies wheezing Patient History Medical History (Updated 02/26/20 @ 17:53 by Sasha Bonilla DO) Arthritis Bleeding gastric ulcer Gastroesophageal reflux disease History of nephrolithiasis HTN (hypertension) Osteoarthritis Raynaud's disease WPW (Mysvb-Ubxbrtzyj-Flfgw syndrome) Surgical History (Updated 02/26/20 @ 17:53 by Sasha Bonilla DO) H/O cardiac radiofrequency ablation History of appendectomy History of cardiac radiofrequency ablation History of cholecystectomy History of colonoscopy History of tonsillectomy Family History Mother Hypertension Brother Hypertension Grandfather Diabetes mellitus Grandmother Stroke Social History marital status: household members: spouse occupational status: employed Smoking Status: Never smoker alcohol intake: current substance use type: does not use Smoking Status: Never smoker alcohol intake frequency: 0-2 drinks per day Substance Use Type: does not use Exam Initial Vital Signs Initial Vital Signs: Vital Signs Temperature 97.8 F 02/26/20 13:57 Pulse Rate 63 02/26/20 13:57 Respiratory Rate 14 02/26/20 13:57 Blood Pressure 130/85 02/26/20 13:57 Pulse Oximetry 100 02/26/20 13:57 GENERAL: Well-appearing, well-nourished and in no acute distress. HEENT: Head atraumatic,EOMI, pupils reactive, face symmetric, moist mucous membranes CARDIOVASCULAR: Regular rate and rhythm without murmurs, rubs or gallops. RESPIRATORY: Breath sounds equal bilaterally, no wheezes rales or rhonchi. ABDOMEN: Soft, mild epigastric pain negative Jeronimo sign no guarding no rebound : Mild right CVA tenderness EXTREMITIES: Normal range of motion, no clubbing or edema. Neurovascularly intact NEUROLOGICAL: Alert and oriented x4.Normal gait and speech. Cranial nerves II through XII grossly intact. SKIN: Warm, dry, no laceration, no petechiae, no rashes or lesions. Scores HEART Score Heart Score history: Slightly Suspicious Heart Score EKG: Normal Heart Score Age: 45-64 years old Heart Score risk factors: 1-2 risk factors Heart Score troponin: < or = to normal limit Heart Score Total: 2 Course Orders Ordered: ED Orders 02/26/20 14:02 XR chest 1V Stat EKG-12 Lead Stat 02/26/20 14:05 Complete Blood Count AUTO DIFF Stat Comprehensive Metabolic Panel Stat Lipase Stat Partial Thromboplastin Time Stat Prothrombin Time INR Stat Troponin & CK Cardiac Panel Stat 02/26/20 14:40 CT kidney ureter bladder (KUB) Stat Discontinued Medications Ondansetron HCl (Ondansetron 4 Mg/2 Ml Inj) 4 mg IV NOW ONE Stop: 02/26/20 14:41 Last Admin: 02/26/20 14:47 Dose: 4 mg Documented by: JEF Vital Signs Vital signs: Vital Signs - 8 hr 02/26/20 13:57 02/26/20 15:46 02/26/20 16:06 Temperature 97.8 F Pulse Rate 63 61 71 Respiratory Rate 14 20 Blood Pressure 130/85 124/87 Pulse Oximetry 100 100 100 MDM - Chest Pain Lab Data Attestation: I reviewed the patient's lab results. Result diagrams: 02/26/20 14:05 02/26/20 14:05 Labs: Lab Results 02/26/20 02/26/20 02/26/20 Range/Units 14:05 14:05 14:05 WBC 7.1 (4.5-11.0) X10^3/uL RBC 5.38 (4.5-5.9) X10^6/uL Hgb 16.6 (13.5-17.5) g/dL Hct 48.9 (41-53) % MCV 90.9 (80-100) fL MCH 30.9 (26-34) PG MCHC 33.9 (30-36) % RDW 12.5 (11.6-14.8) % Plt Count 196 (150-400) X10^3/uL Neut % (Auto) 62.0 (50-75) % Lymph % (Auto) 26.2 (25-40) % [place] % (Auto) 10.5 (3-14) % Eos % (Auto) 0.9 L (2-4) % Baso % (Auto) 0.4 (0-2) % Neut # (Auto) 4400 (3022-5283) /uL Lymph # (Auto) 1900 (2716-9548) /uL [place] # (Auto) 700 (0-900) /uL Eos # (Auto) 100 (0-450) /uL Baso # (Auto) 0 (0-100) /uL PT 10.8 (10.1-12.7) SECONDS INR 0.9 (0.9-1.3) APTT 32 (26.4-36.2) SECONDS Sodium 138 (137-145) mmol/L Potassium 4.2 (3.4-5.1) mmol/L Chloride 106 (98-107) mmol/L Carbon Dioxide 27 (22-32) mmol/L BUN 16 (9-20) mg/dL Creatinine 0.95 (0.66-1.25) mg/dL Estimated GFR > 60.0 (>60) mL/min BUN/Creatinine Ratio 16.8 (6-22) Glucose 103 H (70-100) mg/dL Calcium 9.5 (8.4-10.2) mg/dL Total Bilirubin 1.7 H (0.2-1.3) mg/dL AST 41 (17-59) IU/L ALT 47 (<50) IU/L Alkaline Phosphatase 63 (38-126) U/L Total Creatine Kinase 67 (55-170) U/L CK-MB (CK-2) TNP CK-MB (CK-2) Rel Index TNP Troponin I < 0.012 (0.01-0.034) ng/mL Total Protein 7.9 (6.3-8.2) g/dL Albumin 4.6 (3.5-5.0) g/dL Globulin 3.3 (1.7-4.1) g/dL Albumin/Globulin Ratio 1.4 (1.0-2.8) Lipase 173 (23-300) U/L Imaging Data CT scan - abdomen/pelvis: Radiologist's Impression: PROCEDURE: CT KIDNEY URETER BLADDER (KUB) INDICATIONS: right flank pain TECHNIQUE: Noncontrast 5 mm thick sections acquired from the diaphragms to the symphysis. 5 mm thick coronal and sagittal reformats were then performed. For radiation dose reduction, the following was used: automated exposure control, adjustment of mA and/or kV according to patient size. COMPARISON: [facility], CT, CT ABDOMEN PELVIS W CON, 11/16/2018, 14:05. FINDINGS: Image quality: Excellent. Lung bases: Lung bases are clear. Heart size is normal. Urinary system: Both kidneys are normal in size. No kidney stones. No hydronephrosis or perinephric fat stranding. Both ureters appear non-dilated throughout their expected courses. Mild, diffuse urinary bladder wall thickening. No calcified bladder stones. Other solid organs: Liver is normal in size. Gallbladder is surgically absent. Pancreas is normal in contours. Spleen is normal in size. No adrenal nodules. Peritoneum and bowel: Unenhanced bowel loops demonstrate normal wall thickness and caliber. Sigmoid colon diverticuli noted without evidence of diverticulitis. No free fluid or air. The appendix is not definitely visualized, however no inflammatory changes or free fluid noted adjacent to the cecum. Nodes and vessels: No retroperitoneal or mesenteric adenopathy by size criteria. Aorta and inferior vena cava are normal in caliber. Abdominal wall: No ventral hernias. Pelvis: No free pelvic fluid. No inguinal hernias or adenopathy. Bones: No suspicious bony lesions. No vertebral body compression fractures. Spine degenerative disc disease and facet arthropathy. IMPRESSION: 1. No renal stone or hydronephrosis. 2. No free fluid or free air. 3. No dilated loops of bowel. 4. Diffuse urinary bladder wall thickening. Recommend correlation with clinical and laboratory data Dictated by: Kristin Wesley MD, PhD on 02/26/2020 at 14:56 Approved by: Kristin Wesley MD, PhD on 02/26/2020 at 15:04 Chest x-ray: Radiologist's Impression: PROCEDURE: XR CHEST 1V INDICATIONS: chest pain TECHNIQUE: One view of the chest was acquired. COMPARISON: [facility], CR, XR CHEST 1V, 04/12/2018, 14:49. FINDINGS: Surgical changes and devices: None. Lungs and pleura: Lungs are clear. No pleural effusions or pneumothorax. Mediastinum: Mediastinal contours appear normal. Heart size is normal. Bones and chest wall: No suspicious bony lesions. Overlying soft tissues appear unremarkable. IMPRESSION: No acute disease. Dictated by: Sundar Barrientos M.D. on 02/26/2020 at 14:32 ECG Data Attestation: I personally reviewed and interpreted this ECG as follows: Prior ECG tracings: available for review Interpretation: Normal sinus rhythm rate 67 p.r. interval 170 QRS 134 QTC 416 right bundle-branch block noted similar to previous EKG in [address] changes. MDM Narrative Medical decision making narrative: Patient has pain in his stomach when he eats and feels nauseous. During that time the pain radiates up into his chest. He was quite convinced that he was having a kidney stone because this is how it presented previously. He says he works as a [employer] and is hunched over frequently and does have occasional back twinges. CT was negative for kidney stone. He is feeling a little bit better after Zofran. Possible gastric ulcer. He has previously had a cholecystectomy. He has no right upper quadrant pain at this time on likely retained common bile duct stone lipase is normal. Discussed with him it to return to ED if symptoms are getting worse. Discharge Plan Departure Patient Disposition: Home Clinical Impression: Gastric ulcer Qualifiers: Gastric ulcer chronicity: acute Gastric ulcer complication status: without hemorrhage or perforation Qualified Code(s): K25.3 - Acute gastric ulcer without hemorrhage or perforation Instructions: DI for Gastric Ulcer Activity Restrictions/Additional Instructions: *You have been diagnosed with gastric ulcer *What to do: Blood work and CT scan do not show any kidney stone. You may have a viral like syndrome or possibly a gastric ulcer causing pain when you eat. Avoid NSAIDs such as meloxicam, ibuprofen, Aleve, naproxen, Advil *Continue to take medications as directed--> [facility]omeprazole 20 mg once a day 30 minutes prior to meal Zofran 4 mg every 8 hours if needed for nausea or vomiting *Follow up with your primary care provider in 2-3 days *Return to ER if you should have increasing pain and nausea or vomiting or any new, worsening or concerning symptoms Prescriptions: New omeprazole 20 mg capsule,delayed release(DR/EC) 20 mg PO DAILY Qty: 30 RF: 0 ondansetron 4 mg tablet,disintegrating 4 mg PO Q8H PRN (Reason: nausea and vomiting) Qty: 10 RF: 0 No Action meloxicam 15 mg tablet 15 mg PO QPM RF: 0 atenolol 50 mg tablet 50 mg PO QPM RF: 0 diphenhydramine HCl 25 mg Tablet 12.5 mg PO BEDTIME PRN (Reason: Sleep) RF: 0 diltiazem HCl [Taztia XT] 120 mg Capsule,Extended Release 24 Hr 120 mg PO QPM RF: 0 hydrocodone-acetaminophen [[place]] 5-325 mg tablet 1 tab PO Q6H PRN (Reason: pain) Qty: 10 RF: 0 ondansetron 4 mg tablet,disintegrating 4 mg PO BID-TID PRN (Reason: nausea and vomiting) Qty: 10 RF: 0 Referrals: Melody Benton PA-C [Primary Care Provider] -
--- NOTE | 2020-02-26 14:07 | PC.NURSE ---
Patient reports right flank pain intermittently. Has not been feeling well for couple days. One episode of vomiting but nausea and bloating with eating. Patient has had kidney stones in the past that presented the same way. 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
[2020-02-26 14:11] LABS: Add Manual Diff / Slide Review NO; Basophils Absolute Auto 0 /uL (0-100); Basophils Percent Auto 0.4 % (0-2); Eosinophils Absolute Auto 100 /uL (0-450); Eosinophils Percent Auto 0.9 % (2-4); Hematocrit 48.9 % (41-53); Hemoglobin 16.6 g/dL (13.5-17.5); Lymphocytes Absolute Auto 1900 /uL (1100-4500); Lymphocytes Percent Auto 26.2 % (25-40); Mean Corpuscular HGB Conc 33.9 % (30-36); Mean Corpuscular Hemoglobin 30.9 PG (26-34); Mean Corpuscular Volume 90.9 fL (80-100); Monocytes Absolute Auto 700 /uL (0-900); Monocytes Percent Auto 10.5 % (3-14); Neutrophils Absolute Auto 4400 /uL (1500-7000); Platelet Count 196 X10^3/uL (150-400); Red Blood Cell Count 5.38 X10^6/uL (4.5-5.9); Red Cell Distribution Width 12.5 % (11.6-14.8); White Blood Cell Count 7.1 X10^3/uL (4.5-11.0)
[2020-02-26 14:22] LABS: INR 0.9 (0.9-1.3); Prothrombin Time 10.8 SECONDS (10.1-12.7)
[2020-02-26 14:24] LABS: PTT Partial Thromboplastin Tim 32 SECONDS (26.4-36.2)
[2020-02-26 14:30] LABS: Alanine Aminotransferase 47 IU/L (<50); Albumin 4.6 g/dL (3.5-5.0); Albumin Globulin Ratio 1.4 (1.0-2.8); Alkaline Phosphatase 63 U/L (38-126); Aspartate Aminotransferase 41 IU/L (17-59); BUN Creatinine Ratio 16.8 (6-22); Bilirubin Total 1.7 mg/dL (0.2-1.3); Blood Urea Nitrogen 16 mg/dL (9-20); Calcium 9.5 mg/dL (8.4-10.2); Carbon Dioxide 27 mmol/L (22-32); Chloride 106 mmol/L (98-107); Creatine Kinase 67 U/L (55-170); Estimated Glomerular Filt Rate > 60.0 mL/min (>60); Globulin 3.3 g/dL (1.7-4.1); Glucose 103 mg/dL (70-100); HEMOLYSIS < 15 (0-50); Lipase 173 U/L (23-300); Potassium 4.2 mmol/L (3.4-5.1); Sodium 138 mmol/L (137-145); Total Protein 7.9 g/dL (6.3-8.2)
--- NOTE | 2020-02-26 14:40 | DI.CT.S_ITS ---
PROCEDURE: CT KIDNEY URETER BLADDER (KUB) INDICATIONS: right flank pain TECHNIQUE: Noncontrast 5 mm thick sections acquired from the diaphragms to the symphysis. 5 mm thick coronal and sagittal reformats were then performed. For radiation dose reduction, the following was used: automated exposure control, adjustment of mA and/or kV according to patient size. COMPARISON: [facility], CT, CT ABDOMEN PELVIS W CON, 11/16/2018, 14:05. FINDINGS: Image quality: Excellent. Lung bases: Lung bases are clear. Heart size is normal. Urinary system: Both kidneys are normal in size. No kidney stones. No hydronephrosis or perinephric fat stranding. Both ureters appear non-dilated throughout their expected courses. Mild, diffuse urinary bladder wall thickening. No calcified bladder stones. Other solid organs: Liver is normal in size. Gallbladder is surgically absent. Pancreas is normal in contours. Spleen is normal in size. No adrenal nodules. Peritoneum and bowel: Unenhanced bowel loops demonstrate normal wall thickness and caliber. Sigmoid colon diverticuli noted without evidence of diverticulitis. No free fluid or air. The appendix is not definitely visualized, however no inflammatory changes or free fluid noted adjacent to the cecum. Nodes and vessels: No retroperitoneal or mesenteric adenopathy by size criteria. Aorta and inferior vena cava are normal in caliber. Abdominal wall: No ventral hernias. Pelvis: No free pelvic fluid. No inguinal hernias or adenopathy. Bones: No suspicious bony lesions. No vertebral body compression fractures. Spine degenerative disc disease and facet arthropathy. IMPRESSION: 1. No renal stone or hydronephrosis. 2. No free fluid or free air. 3. No dilated loops of bowel. 4. Diffuse urinary bladder wall thickening. Recommend correlation with clinical and laboratory data Dictated by: Kristin Wesley MD, PhD on 02/26/2020 at 14:56 Approved by: Kristin Wesley MD, PhD on 02/26/2020 at 15:04
[2020-02-26 14:41] LABS: Troponin I < 0.012 ng/mL (0.01-0.034)
[2020-02-26] MEDS: ONDANSETRON 4 MG/2 ML INJ IV (14:47)
[2020-02-26 15:46] VITALS: PULSE 61; RESP 20; O2SAT 100
[2020-02-26 16:06] VITALS: BP 124/87; PULSE 71; O2SAT 100
== END 2020-02-26 16:06 | disposition home or self-care (01) ==
PROVIDERS: Emergency Provider Emergency Medicine; Family Provider Family Medicine; PCP Physician Assistant
DX: K25.3 Acute gastric ulcer without hemorrhage or perforation (principal); R07.9 Chest pain, unspecified; R11.2 Nausea with vomiting, unspecified; R10.9 Unspecified abdominal pain; Z87.442 Personal history of urinary calculi; I10 Essential (primary) hypertension; I45.6 Pre-excitation syndrome; I73.00 Raynaud's syndrome without gangrene
CPT/HCPCS: 36415; 71045; 74176; 80053; 82550; 83690; 84484; 85025; 85610; 85730; 93005; 93010; 96374; 99283; 99284; J2405

== ENCOUNTER → 2020-07-02 07:06 | Outpatient (CLI) | payer OTHER, SELFPAY ==
--- NOTE | 2020-07-02 | DI.US.S_ITS ---
PROCEDURE: US ABDOMEN LIMITED INDICATIONS: ABNORMAL LFTS TECHNIQUE: Real-time focused scanning was performed of the abdomen, with image documentation. COMPARISON: [facility], CT, CT ABDOMEN PELVIS W CON, 11/16/2018, 14:05. [facility], CT, CT KIDNEY URETER BLADDER (KUB), 02/26/2020, 14:47. FINDINGS: The liver demonstrates normal size. The liver demonstrates generalized mildly increased echogenicity. This decreases ultrasound sensitivity for detection of hepatic masses. The main portal vein demonstrates normal size and demonstrates normal appearing, hepatopetal flow. The gallbladder is surgically absent. There is no biliary dilatation, the common bile duct measures 4 mm. The pancreas is not seen, secondary to overlying bowel gas. IMPRESSION: The liver demonstrates increased echogenicity. This finding is nonspecific, yet it is most commonly attributed to fatty infiltration. Status post cholecystectomy, without biliary dilatation. Dictated by: Nav Torre M.D. on 07/02/2020 at 9:44 Approved by: Nav Torre M.D. on 07/02/2020 at 9:46
== END ==
PROVIDERS: Family Provider Family Medicine; PCP Physician Assistant; Referring Provider Physician Assistant; Visit Provider Physician Assistant
DX: R94.5 Abnormal results of liver function studies (principal); R10.9 Unspecified abdominal pain; Z90.49 Acquired absence of other specified parts of digestive tract
CPT/HCPCS: 76705

== ENCOUNTER → 2021-01-21 09:46 | Outpatient (CLI) | payer OTHER, SELFPAY ==
--- NOTE | 2021-01-21 11:11 | DI.CT.S_ITS ---
PROCEDURE: CT ABDOMEN PELVIS W CON INDICATIONS: Generalized abdominal pain TECHNIQUE: After the administration of oral and IV contrast, axial sections were acquired from the lung bases to the pubic symphysis. Coronal and sagittal reformats were performed. For radiation dose reduction, the following was used: automated exposure control, adjustment of mA and/or kV according to patient size. COMPARISON: [facility], CT, CT KIDNEY URETER BLADDER (KUB), 02/26/2020, 14:47. [facility], CT, CT ABDOMEN PELVIS W CON, 11/16/2018, 14:05. FINDINGS: Image quality: Excellent. Lung bases: A few tiny pulmonary nodules. No pleural effusion. Heart: No significant findings. ABDOMEN: Liver: No focal lesion. Gallbladder: Surgically absent. Biliary ducts: No dilatation. Pancreas: No peripancreatic fluid collection. Spleen: No splenomegaly. Small splenule. Adrenal Glands: No nodule. Kidneys and Ureters: No hydronephrosis. Stomach and Bowel: Stomach is not distended. No small bowel obstruction. No significant diverticulosis. Appendix is absent. Peritoneum: No abnormal intraperitoneal fluid. No free air. Ventral Wall: No hernia. Abdominal Nodes: No retroperitoneal or mesenteric adenopathy by size criteria. Vessels: Aorta and inferior vena cava are normal in size. PELVIS: Pelvic Organs: Prostatomegaly. Possible right hydrocele. Bladder: Question mild urinary bladder wall thickening. No bladder stone. No urinary diverticulum seen. Pelvic Nodes: No enlarged lymph nodes. Miscellaneous: No inguinal hernias are seen. Bones: No suspicious lesion. IMPRESSION: 1. Source for abdominal pain is not identified. No small bowel obstruction. No free fluid. 2. Post cholecystectomy and appendectomy. 3. Apparent mild bladder wall thickening. Prostatomegaly. Dictated by: King Diez M.D. on 01/21/2021 at 11:44 Approved by: King Diez M.D. on 01/21/2021 at 11:53
== END ==
PROVIDERS: Family Provider Family Medicine; PCP Physician Assistant; Referring Provider Physician Assistant; Visit Provider Physician Assistant
DX: R10.84 Generalized abdominal pain (principal); N40.0 Benign prostatic hyperplasia without lower urinary tract symptoms; Z90.49 Acquired absence of other specified parts of digestive tract
CPT/HCPCS: 74177; Q9967

== ENCOUNTER → 2021-02-18 07:45 | Outpatient (CLI) | payer OTHER, SELFPAY ==
--- NOTE | 2021-02-18 07:46 | DI.RAD.S_ITS ---
PROCEDURE: FL BARIUM SWALLOW W AIR COMPARISON: [facility], CT, CT ABDOMEN PELVIS W CON, 01/21/2021, 11:15. INDICATIONS: Dysphagia FINDINGS: Toggle Press Folder And Feeder image is unremarkable. There is rapid transit of contrast in the upright position through the esophagus. Esophageal stripping waves are normal. No stricture or erosion is demonstrated. No diverticulum. No hiatal hernia. Stomach appears unremarkable. No ulcer identified. Contrast transits into the duodenum and jejunum rapidly. There is rapid transit of a barium tablet. Cholecystectomy clips. IMPRESSION: Esophageal motility appears normal. No hiatal hernia or gastroesophageal reflux demonstrated. Dictated by: King Diez M.D. on 02/18/2021 at 11:05 Approved by: King Diez M.D. on 02/18/2021 at 11:23
== END ==
PROVIDERS: Family Provider Family Medicine; PCP Physician Assistant; Referring Provider Surgery; Visit Provider Surgery
DX: R13.10 Dysphagia, unspecified (principal)
CPT/HCPCS: 74221

== ENCOUNTER → 2021-07-08 13:37 | Outpatient (ROUT) | payer OTHER, SELFPAY ==
[2021-07-08 14:17] LABS: COVID19 -Nasal RAPID Negative (Negative)
== END ==
PROVIDERS: Family Provider Family Medicine; PCP Physician Assistant; Visit Provider Physician Assistant
DX: Z20.822 Contact with and (suspected) exposure to COVID-19 (principal)
CPT/HCPCS: 87635

== ENCOUNTER 2023-01-22 21:21 | Emergency (ER) | payer OTHER, SELFPAY ==
[2023-01-22] VITALS (7 sets, daily range): BP systolic 119–147; BP diastolic 78–90; PULSE 60–84; RESP 12–21; TEMP 36.6; O2SAT 97–100; BMI 25.7
[2023-01-22 21:57] LABS: Add Manual Diff / Slide Review NO; Basophils Absolute Auto 0 /uL (0-100); Basophils Percent Auto 0.3 % (0-2); Eosinophils Absolute Auto 100 /uL (0-450); Eosinophils Percent Auto 1.5 % (2-4); Hematocrit 47.9 % (41-53); Hemoglobin 16.3 g/dL (13.5-17.5); Lymphocytes Absolute Auto 2400 /uL (1100-4500); Lymphocytes Percent Auto 31.2 % (25-40); Mean Corpuscular Hemoglobin 30.4 PG (26-34); Mean Corpuscular Volume 89.4 fL (80-100); Monocytes Absolute Auto 900 /uL (0-900); Monocytes Percent Auto 11.4 % (3-14); Neutrophils Absolute Auto 4200 /uL (1500-7000); Neutrophils Percent Auto 55.6 % (50-75); Platelet Count 177 X10^3/uL (150-400); Red Blood Cell Count 5.37 X10^6/uL (4.5-5.9); Red Cell Distribution Width 12.8 % (11.6-14.8); White Blood Cell Count 7.6 X10^3/uL (4.5-11.0)
[2023-01-22 22:05] LABS: Alanine Aminotransferase 50 IU/L (<50); Albumin 4.5 g/dL (3.5-5.0); Albumin Globulin Ratio 1.5 (1.0-2.8); Alkaline Phosphatase 65 U/L (38-126); Aspartate Aminotransferase 39 IU/L (17-59); BUN Creatinine Ratio 11.6 (6-22); Bilirubin Total 1.5 mg/dL (0.2-1.3); Blood Urea Nitrogen 11 mg/dL (9-20); Calcium 9.7 mg/dL (8.4-10.2); Carbon Dioxide 24 mmol/L (22-32); Chloride 106 mmol/L (98-107); Estimated Glomerular Filt Rate > 60 mL/min (>60); Globulin 3.1 g/dL (1.7-4.1); Glucose 95 mg/dL (70-100); HEMOLYSIS < 15 (0-50); Lipase 215 U/L (23-300); Potassium 3.7 mmol/L (3.4-5.1); Sodium 137 mmol/L (137-145); Total Protein 7.6 g/dL (6.3-8.2)
--- NOTE | 2023-01-22 23:06 | DI.CT.S_ITS ---
PROCEDURE: CT ABDOMEN PELVIS W CON INDICATIONS: abd pain TECHNIQUE: After the administration of intravenous contrast, axial sections acquired from the lung bases to the pubic symphysis. Coronal and sagittal reformats were performed. For radiation dose reduction, the following was used: automated exposure control, adjustment of mA and/or kV according to patient size. COMPARISON: None. FINDINGS: Image quality: Excellent. Lung bases: Unremarkable. Heart: No significant findings. ABDOMEN: Liver: There is diffuse hypoattenuation of the liver parenchyma relative to the spleen compatible with hepatic steatosis. Gallbladder: Status post cholecystectomy Biliary ducts: Unremarkable. Pancreas: Unremarkable. Spleen: Unremarkable. Adrenal Glands: Unremarkable. Kidneys and Ureters: Unremarkable. Stomach and Bowel: Stomach, small bowel loops, and colon are unremarkable. Peritoneum: No abnormal intraperitoneal fluid. No free air. Ventral Wall: There is a small fat-containing umbilical hernia without acute inflammation. Abdominal Nodes: No retroperitoneal or mesenteric adenopathy by size criteria. Vessels: Aorta and inferior vena cava are normal in size. PELVIS: Pelvic Organs: Coarse prosthetic calcifications. Bladder: Unremarkable. Pelvic Nodes: No enlarged lymph nodes. Miscellaneous: No hernias are seen. Bones: Visualized osseous structures appear intact without acute fracture or focal destructive lesion. No acute compression fractures of the imaged spine. IMPRESSION: CT abdomen and pelvis without acute abnormalities. No evidence for obstructive uropathy. Hepatic steatosis. Dictated by: Jarrett Lucas M.D. on 01/22/2023 at 23:37 Approved by: Jarrett Lucas M.D. on 01/22/2023 at 23:45
--- NOTE | 2023-01-22 23:37 | ED_ITS ---
HPI - Abdominal Pain General Chief Complaint: Abdominal Pain Stated Complaint: diarreha chest pain dizzy Time Seen by Provider: 01/22/23 22:49 Source: patient Mode of arrival: Ambulatory History of Present Illness HPI narrative: 57-year-old man with a history of previous cholecystectomy appendectomy and peptic ulcer disease presenting with epigastric and right upper quadrant abdominal pain. He says he is had this for 5 days. Described it as pressure- like or fullness associated with some nausea he is not vomited has had some loose stool but no actual diarrhea no hemo emesis or hematochezia. He is not had fevers. He does think that eating makes his symptoms worse. He is not having any urinary symptoms. At times the pain radiates up into his chest and over into his left shoulder. Has had episodes of similar pain in the past, this does not correlate to any previously established diagnosis. Also feels a bit lightheaded at times. Related Data Home Medications Medication Instructions Recorded Confirmed atenolol 50 mg tablet 50 mg PO QPM 04/12/18 11/16/18 meloxicam 15 mg tablet 15 mg PO QPM 04/12/18 11/16/18 diltiazem HCl 120 mg capsule,24 120 mg PO QPM 11/16/18 11/16/18 hr,extended release (Taztia XT) sucralfate 1 gram tablet 1 g PO QID 01/19/21 01/19/21 Previous Rx's Medication Instructions Recorded omeprazole 20 mg capsule,delayed 20 mg PO DAILY #30 caps 02/26/20 release ondansetron 4 mg disintegrating 4 mg PO Q8H nausea #14 tabs 01/23/23 tablet Allergies Allergy/AdvReac Type Severity Reaction Status Date / Time latex [LATEX] Allergy Intermediate Rash Verified 01/19/21 15:26 Patient History Medical History (Updated 01/23/23 @ 01:29 by Leoncio Pereira MD) WPW (Fwupo-Sruwjihqk-Hodfc syndrome) History of nephrolithiasis Gastroesophageal reflux disease Osteoarthritis Bleeding gastric ulcer Arthritis HTN (hypertension) Raynaud's disease Surgical History (Updated 02/26/20 @ 17:53 by Sasha Bonilla DO) H/O cardiac radiofrequency ablation History of colonoscopy History of tonsillectomy History of cardiac radiofrequency ablation History of appendectomy History of cholecystectomy Family History Mother Hypertension Brother Hypertension Grandfather Diabetes mellitus Grandmother Stroke Social History marital status: household members: spouse occupational status: employed Smoking Status: Never smoker alcohol intake: current substance use type: does not use Smoking Status: Never smoker alcohol intake frequency: 3 or more drinks per day Alcohol type: beer Substance Use Type: does not use Exam Initial Vital Signs Initial Vital Signs: Vital Signs Temperature 97.8 F 01/22/23 21:24 Pulse Rate 84 01/22/23 21:24 Respiratory Rate 18 01/22/23 21:24 Blood Pressure 132/87 01/22/23 21:24 Pulse Oximetry 100 01/22/23 21:24 Oxygen Delivery Method Room Air 01/22/23 21:24 Const General: No acute distress HENMT Head: normocephalic and atraumatic Mouth: moist mucous membranes Resp Effort & Inspection: normal respiratory effort Auscultation: clear to auscultation bilaterally Cardio Rate: regular rate Rhythm: regular rhythm Heart Sounds: S1 normal and S2 normal GI Inspection: normal to inspection Palpation: soft, no hepatosplenomegaly, No guarding and tender (Epigastric and right upper quadrant tenderness) Auscultation: normal bowel sounds Skin General: no rashes or lesions noted Neuro General: patient alert and patient oriented x3 Course Orders Ordered: ED Orders 01/22/23 21:34 EKG-12 Lead Stat 01/22/23 21:40 Complete Blood Count AUTO DIFF Stat Comprehensive Metabolic Panel Stat Lipase Stat Trop I [Troponin I] Stat 01/22/23 23:06 CT abdomen pelvis w con Stat Discontinued Medications Ondansetron HCl (Ondansetron 4 Mg Odt) 4 mg PO NOW PRN PRN Reason: Nausea And Vomiting Ondansetron HCl (Ondansetron 4 Mg/2 Ml Inj) 4 mg IV NOW PRN PRN Reason: Nausea And Vomiting Vital Signs Vital signs: Vital Signs - 8 hr 01/22/23 21:24 01/22/23 21:34 01/22/23 21:35 Temperature 97.8 F Pulse Rate 84 70 Respiratory Rate 18 Blood Pressure 132/87 143/89 H Pulse Oximetry 100 99 Oxygen Delivery Method Room Air 01/22/23 21:35 01/22/23 22:00 01/22/23 22:00 Temperature Pulse Rate 73 64 Respiratory Rate 18 13 Blood Pressure 127/84 Pulse Oximetry 99 97 Oxygen Delivery Method 01/22/23 22:30 01/22/23 22:30 01/22/23 23:00 Temperature Pulse Rate 65 60 Respiratory Rate 12 21 Blood Pressure 123/83 Pulse Oximetry 98 98 Oxygen Delivery Method 01/22/23 23:00 01/22/23 23:30 01/22/23 23:30 Temperature Pulse Rate 69 Respiratory Rate 12 Blood Pressure 147/90 H 119/78 Pulse Oximetry 99 Oxygen Delivery Method 01/23/23 00:00 01/23/23 00:00 01/23/23 00:30 Temperature Pulse Rate 63 65 Respiratory Rate 16 16 Blood Pressure 122/83 Pulse Oximetry 99 98 Oxygen Delivery Method 01/23/23 00:30 01/23/23 01:00 Temperature Pulse Rate 63 Respiratory Rate 16 Blood Pressure 118/80 118/80 Pulse Oximetry 98 Oxygen Delivery Method MDM - Abdominal Pain Medical Records Medical records narrative: Reviewed previous records including ED note from February of 2021, and surgery note related to peptic ulcer disease Lab Data Lab results narrative: CBC with diff CMP and lipase are unremarkable. 01/22/23 21:40 01/22/23 21:40 Labs: Lab Results 01/22/23 Range/Units 21:40 WBC 7.6 (4.5-11.0) X10^3/uL RBC 5.37 (4.5-5.9) X10^6/uL Hgb 16.3 (13.5-17.5) g/dL Hct 47.9 (41-53) % MCV 89.4 (80-100) fL MCH 30.4 (26-34) PG MCHC 34.0 (30-36) % RDW 12.8 (11.6-14.8) % Plt Count 177 (150-400) X10^3/uL Neut % (Auto) 55.6 (50-75) % Lymph % (Auto) 31.2 (25-40) % [place] % (Auto) 11.4 (3-14) % Eos % (Auto) 1.5 L (2-4) % Baso % (Auto) 0.3 (0-2) % Neut # (Auto) 4200 (3965-6630) /uL Lymph # (Auto) 2400 (9000-2257) /uL [place] # (Auto) 900 (0-900) /uL Eos # (Auto) 100 (0-450) /uL Baso # (Auto) 0 (0-100) /uL Sodium 137 (137-145) mmol/L Potassium 3.7 (3.4-5.1) mmol/L Chloride 106 (98-107) mmol/L Carbon Dioxide 24 (22-32) mmol/L BUN 11 (9-20) mg/dL Creatinine 0.95 (0.66-1.25) mg/dL Estimated GFR > 60 (>60) mL/min BUN/Creatinine Ratio 11.6 (6-22) Glucose 95 (70-100) mg/dL Calcium 9.7 (8.4-10.2) mg/dL Total Bilirubin 1.5 H (0.2-1.3) mg/dL AST 39 (17-59) IU/L ALT 50 H (<50) IU/L Alkaline Phosphatase 65 (38-126) U/L Troponin I < 0.012 (0.01-0.034) ng/mL Total Protein 7.6 (6.3-8.2) g/dL Albumin 4.5 (3.5-5.0) g/dL Globulin 3.1 (1.7-4.1) g/dL Albumin/Globulin Ratio 1.5 (1.0-2.8) Lipase 215 (23-300) U/L Point of care testing: Urine Dip Bedside Urine Glucose Negative Bedside Urine Bilirubin - Negative Bedside Urine Ketone +/- 5 Urine Specific [place] 1.000 Bedside Urine Occult Blood - Negative Bedside Urine pH 6.0 Bedside Urine Protein - Negative Bedside Urine Urobilinogen 0.2 Bedside Urine Nitrite - Negative Bedside Urine Leukocytes - Negative Esterase Imaging Data CT scan - abdomen/pelvis: My Impression: Independent review of CT abdomen and pelvis: No acute disease Radiologist's Impression: IMPRESSION: CT abdomen and pelvis without acute abnormalities. No evidence for obstructive uropathy. Hepatic steatosis. ECG Data Interpretation: EKG shows normal sinus rhythm at 68 there is a right bundle-branch pattern no acute ST segment changes MDM Narrative Medical decision making narrative: 57-year-old male complaining of epigastric abdominal pain that gets worse with eating. He is status post cholecystectomy. I considered the possibility of a common bile duct stone, he does not have evidence for this on CT, his bilirubin is mildly elevated this has been previously lipase is normal. Has a history of peptic ulcer disease however his pain gets better with eating and he is already on a proton pump inhibitor as well as Carafate. Imaging and labs do not suggest pancreatitis. No evidence for bowel obstruction is seen. I think at this point it is safe to treat him symptomatically I provided a prescription for ondansetron. Recommended primary care follow-up as soon as possible Discharge Plan Departure Patient Disposition: Home Clinical Impression: Abdominal pain Qualifiers: Abdominal location: epigastric Qualified Code(s): R10.13 - Epigastric pain Instructions: DI for Abdominal Pain-Adult Activity Restrictions/Additional Instructions: Emergency department workup today is reassuring. No serious cause for symptoms of abdominal pain and gas are identified. Avoid gas-forming foods you can use simethicone as needed. I have sent a prescription for ondansetron that you can use as needed for nausea. You can use acetaminophen (Tylenol) at usual [id number] doses and frequencies as needed for pain. Make an appointment to see your primary care provider soon for a recheck. Prescriptions: New ondansetron 4 mg tablet,disintegrating 4 mg PO Q8H Qty: 14 0RF No Action sucralfate 1 gram tablet 1 g PO QID meloxicam 15 mg tablet 15 mg PO QPM atenolol 50 mg tablet 50 mg PO QPM omeprazole 20 mg capsule,delayed release(DR/EC) 20 mg PO DAILY Qty: 30 0RF diltiazem HCl [Taztia XT] 120 mg Capsule,Extended Release 24 Hr 120 mg PO QPM Referrals: Melody Benton PA-C [Primary Care Provider] - Stand Alone Forms: Patient Portal/API
[2023-01-23] VITALS: BP 122/83; PULSE 63; RESP 16; O2SAT 99
[2023-01-23 00:21] LABS: Troponin I < 0.012 ng/mL (0.01-0.034)
[2023-01-23 00:30] VITALS: BP 118/80; PULSE 65; RESP 16; O2SAT 98
[2023-01-23 01:00] VITALS: BP 118/80; PULSE 63; RESP 16; O2SAT 98
== END 2023-01-23 01:38 | disposition home or self-care (01) ==
PROVIDERS: Emergency Provider Emergency Medicine; Family Provider Family Medicine; PCP Physician Assistant
DX: R10.11 Right upper quadrant pain (principal); R10.13 Epigastric pain; I45.10 Unspecified right bundle-branch block
CPT/HCPCS: 36415; 74177; 80053; 81003; 83690; 84484; 85025; 93005; 93010; 99284; Q9967